=== PATIENT | female | born 1970 | race Caucasian/White ===

== ENCOUNTER 2017-11-04 11:20 | Emergency (ER) | payer BC, MEDICAID ==
[~2017-11-04] VITALS: Ht 154.9 cm; Wt 49.0 kg
[2017-11-04 11:24] VITALS: BP 103/69
== END 2017-11-04 12:32 | disposition home or self-care (01) ==
LOC: ER 11:21
DX: L03.116 Cellulitis of left lower limb (principal); B02.9 Zoster without complications
CPT/HCPCS: A4606; Z7610